=== PATIENT | male | born 2000 | race Caucasian/White ===

== ENCOUNTER 2020-01-02 11:06 | Emergency (ER) | payer OTHER, SELFPAY ==
[2020-01-02 11:57] VITALS: BP 123/77; PULSE 113; RESP 16; TEMP 38.1; O2SAT 98
--- NOTE | 2020-01-02 13:29 | ED.GENADULT ---
HPI - General Adult General Chief complaint: Upper Respiratory Infection Stated complaint: Swollen tonsils Time Seen by Provider: 01/02/20 13:29 Source: patient and RN notes reviewed Mode of arrival: ambulatory Limitations: no limitations History of Present Illness HPI narrative: This is a 19 years old male presented office for evaluation of sore throat for 6-day. Associated with fever, and feeling malaise. He tested negative for strep on Saturday with his PCP however his symptom is getting worse for the last couple day. Denies history of mono. Related Data Allergies Allergy/AdvReac Type Severity Reaction Status Date / Time No Known Allergies Allergy Verified 01/02/20 12:57 Review of Systems Review of Systems: Narrative: CONSTITUTIONAL: Denies fever EYES: Denies visual changes ENT: Denies otalgia. CARDIOVASCULAR: Denies chest pain RESPIRATORY: Denies cough GASTROINTESTINAL: Denies abdominal pain, nausea, vomiting GENITOURINARY: Denies urinary symptoms or discharge SKIN: Denies rash MUSCULOSKELETAL: Denies acute back pain NEUROLOGIC: Denies lightheaded PMFSH Comments At time of signature, I agree with nursing past medical, surgical, social and family history. There is no relevant family history pertinent to the presenting complaint. Exam Narrative: Exam Narrative: GENERAL: This is a well-nourished, well-developed patient, in no apparent distress. EYES: Sclera clear/white. Vision is grossly intact. EARS: External ears normal, auditory canals clear and without drainage, TMs normal without perforation. Hearing grossly intact. NOSE: External nose normal with no obvious nasal discharge, nares without redness, no rhinorrhea. THROAT: Mucous membranes moist, posterior pharynx erythema and edematous, tonsils 2+ without exudative NECK: Neck supple, tender with lymphadenopathy CARDIOVASCULAR: Regular rate and rhythm without murmurs, gallops, or rubs. RESPIRATORY: Clear to auscultation. Breath sounds equal bilaterally. No wheezes, rales, or rhonchi. GASTROINTESTINAL: Abdomen soft, non-tender, nondistended. Bowel sounds are active. No hepato-splenomegaly, or palpable masses. No guarding. SKIN: warm, intact with no suspicious lesions or rash, good texture and turgor. NEURO: awake, alert, and oriented to person, place and time. There were no obvious focal neurologic abnormalities. Steady gait Dl Coma Scale Eye Opening: Spontaneous 4 [place] Coma Scale Motor: Obeys Commands 6 [place] Coma Scale Verbal: Oriented 5 Course Vital Signs Vital signs: Vital Signs Temperature 100.5 F H 01/02/20 11:57 Pulse Rate 113 H 01/02/20 11:57 Respiratory Rate 16 01/02/20 11:57 Blood Pressure 123/77 01/02/20 11:57 Pulse Oximetry 98 01/02/20 11:57 Temperature 100.5 F H 01/02/20 11:57 Pulse Rate 113 H 01/02/20 11:57 Respiratory Rate 16 01/02/20 11:57 Blood Pressure 123/77 01/02/20 11:57 Pulse Oximetry 98 01/02/20 11:57 Medical Decision Making MDM Narrative Medical decision making narrative: Discharge instructions reviewed with patient, as well as provided in writing per nursing staff. The instructions also include specific and strict return/GO TO THE ER as well as f/u information. All questions have been answered, and the patient deny any further questions with discharge and discharge plan. Differential Diagnosis Differential Diagnosis: pneumonia, Allergic Rhinitis, Upper respiratory cough syndrome, Pharyngitis, Sinusitis, Bronchitis, otitis media, viral URI, Asthma/reactive airway disease, influenza Vital Signs Vital Signs: Vital Signs Temperature 100.5 F H 01/02/20 11:57 Pulse Rate 113 H 01/02/20 11:57 Respiratory Rate 16 01/02/20 11:57 Blood Pressure 123/77 01/02/20 11:57 Pulse Oximetry 98 01/02/20 11:57 Temperature 100.5 F H 01/02/20 11:57 Pulse Rate 113 H 01/02/20 11:57 Respiratory Rate 16 01/02/20 11:57 Blood Pressure 123/77 01/02/20 11:57 Pulse Oximetry 98
== END 2020-01-02 14:04 | disposition home or self-care (01) ==
PROVIDERS: Emergency Provider Nurse Practitioner
DX: J03.90 Acute tonsillitis, unspecified (principal)
CPT/HCPCS: 86308; 87081; 87147; 87880; 99203; G0463